=== PATIENT | male | born 1950 | race Caucasian/White ===

== ENCOUNTER 2017-12-29 20:32 | Emergency (ER) | payer SELFPAY ==
[~2017-12-29] VITALS: Ht 172.7 cm; Wt 65.0 kg
[2017-12-30 01:23] VITALS: BP 104/74
== END 2017-12-30 02:20 | disposition home or self-care (01) ==
LOC: ED 23:59
DX: F10.220 Alcohol dependence with intoxication, uncomplicated (principal)
CPT/HCPCS: 99283

== ENCOUNTER 2018-01-01 21:00 | Emergency (ER) | payer OTHER ==
[~2018-01-01] VITALS: Ht 175.3 cm; Wt 70.0 kg
[2018-01-01 22:50] LABS: ANION GAP 11 mmol/L (5-15); CALCIUM 7.6 mg/dL (8.5-10.1); CHLORIDE 108 mmol/L (98-107); CREATININE 0.45 mg/dL (0.7-1.3)
[2018-01-01] MEDS ORDERED: SODIUM CHLORIDE 0.9%, 500ML IVBOLUS ONE (23:00)
[2018-01-02 03:38] VITALS: BP 105/59
== END 2018-01-02 06:02 | disposition home or self-care (01) ==
LOC: ED 23:29
DX: F10.121 Alcohol abuse with intoxication delirium (principal); G93.41 Metabolic encephalopathy
CPT/HCPCS: 36415; 70450; 80048; 80307; 96360; 96361; 99285; J7040